=== PATIENT | male | born 1980 | race Caucasian/White ===

== ENCOUNTER 2020-03-18 02:09 | Emergency (ER) | payer BC ==
[2020-03-18] MEDS ORDERED: Amoxicillin/Clavulanate K 875-125 MG Tab PO STA (02:54)
--- NOTE | 2020-03-18 03:01 | EDM.PDOC ---
ED HPI GENERAL MEDICAL PROBLEM - General Chief Complaint: Skin Complaint Stated Complaint: BOIL THAT NEEDS TO BE LANCED Time Seen by Provider: 03/18/20 02:26 Source of Information: Reports: Patient History Limitations: Reports: No Limitations - History of Present Illness INITIAL COMMENTS - FREE TEXT/NARRATIVE: Mr. Cho is a very pleasant 39-year-old gentleman who now presents to the ED stating that he developed a boil on his right buttock on , 03/15/2020. He states that at first it was just a lump, but by 03/17/2020, it had become much larger and was painful and tender. The patient does not recall any injury that might have caused the lump. The patient states that he has had similar lesions twice in the past. The first time, he was seen at an emergency room and was told to just let it pop on its own, which it did. The second time, he went to a walk-in clinic, where it was lanced. The patient has not taken any [id number] or applied any home remedies to try to treat his symptoms. Here in the ED, the patient's initial BP is found to be mildly elevated at 153/100, otherwise, he is hemodynamically stable, afebrile, saturating 100% on room air. Other than the painful lump on his right buttock, the patient denies recent fever, chills, sore throat, ear pain, nasal or sinus congestion, cough, dyspnea, chest pain, palpitations, nausea, vomiting, constipation, diarrhea, abdominal pain, urinary symptoms, recent weight gain or weight loss, recent bloody bowel movements or black bowel movements, recent joint aches, headaches, or rashes. The patient does not have a PCP. Buttock Pain Score (Numeric/FACES): 8 - Related Data Allergies Allergy/AdvReac Type Severity Reaction Status Date / Time cefaclor [From Ceclor] Allergy Severe Fever Verified 03/18/20 02:27 erythromycin base Allergy Severe Hives Verified 03/18/20 02:28 [From Pediazole] sulfisoxazole Allergy Severe Hives Verified 03/18/20 02:28 [From Pediazole] Home Meds: Home Meds Amoxicillin/Potassium Clav [Augmentin 875-125 Tablet] 1 tab PO Q12H #20 tablet 03/18/20 [Rx] Fluticasone Furoate [Flonase Sensimist] 1 spray NASBOTH DAILY 03/18/20 [History] Past Medical History HEENT History: Reports: Allergic Rhinitis Genitourinary History: Reports: Renal Calculus - Past Surgical History HEENT Surgical History: Reports: Adenoidectomy, Oral Surgery (wisdom teeth extraction), Tonsillectomy GI Surgical History: Reports: Hernia, Inguinal (bilateral) Male Surgical History: Reports: Lithotripsy ([facility]) Social & Family History - Tobacco Use Smoking Status *Q: Never Smoker Tobacco Use Within Last Twelve Months: Smokeless Tobacco (Chewed 1 can/wk x 15 yrs, quit 2013) - Caffeine Use Caffeine Use: Reports: None - Alcohol Use Alcohol Use History: Yes Alcohol Use Frequency: Socially - Recreational Drug Use Recreational Drug Use: No - Living Situation & Occupation Living situation: Reports: Single, with Significant Other (Girlfrined), with Family (1 infant son) 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 ED EXAM, SKIN/RASH Exam: See Below Exam Limited By: No Limitations General Appearance: Alert, WD/WN, No Apparent Distress Rectal (Males) Exam: Perirectal Abscess (large, right) Course - Vital Signs Last Recorded V/S: Last Vital Signs Temp 36.6 C 03/18/20 02:17 Pulse 99 03/18/20 02:17 Resp 20 03/18/20 02:17 BP 153/100 H 03/18/20 02:17 Pulse Ox 100 03/18/20 02:17 - Orders/Labs/Meds Orders: Active Orders 24 hr Category Date Time Status Amoxicillin/Clavulanate K [Augmentin 875 MG/125 MG] Med 03/18/20 02:54 Stat 1 tab PO ONETIME STA - Re-Assessments/Exams Free Text/Narrative Re-Assessment/Exam: 03/18/20 02:55 As above, the "boil" that the patient has on his right buttock is in fact a large right perirectal abscess. It would be improper for me to attempt to drain it here in the ED. The patient should have proper surgical drainage and exploration. I offered to call our surgeon, however, the patient stated that he will be going back home to [place] after he leaves here, therefore I will refer him to Dr. Horne at [facility]. In the meantime, in order to prevent spread of the infection, I will start him on oral Augmentin, and prescribe a 10- day course. Departure - Departure Time of Disposition: 02:56 Disposition: Home, Self-Care 01 Condition: Good Clinical Impression: Perirectal abscess - Discharge Information *PRESCRIPTION DRUG MONITORING PROGRAM REVIEWED*: Not Applicable *COPY OF PRESCRIPTION DRUG MONITORING REPORT IN PATIENT FLORIN: Not Applicable Prescriptions: Amoxicillin/Potassium Clav [Augmentin 875-125 Tablet] 1 tab PO Q12H #20 tablet Referrals: Rui Horne MD [Ordering Only Provider] - Additional Instructions: You were seen in the emergency room for a "boil" on your right buttock. On examination, you have a large right perirectal abscess. As discussed, it would be inappropriate for this to be drained in the ER; it requires proper surgical drainage and exploration. You have been started on antibiotic Augmentin. This will not cure the abscess, but will help to prevent the infection from spreading any further. Take 1 tablet of Augmentin every 12 hours, starting this afternoon, 03/18/2020, as prescribed. Follow-up with the Colorectal Surgeon Dr. Rui Horne, at [facility], at the next available appointment. Make sure that the insurance claims processor understands that you are following up from the emergency room, and that we recommend that you be evaluated soon. If any other problems, please do not hesitate to return to the ER. Sepsis Event Note (ED) - Evaluation Sepsis Screening Result: No Definite Risk - Focused Exam Vital Signs: Vital Signs Temp Pulse Resp BP Pulse Ox 03/18/20 02:17 36.6 C 99 20 153/100 H 100 - My Orders Last 24 Hours: My Active Orders 03/18/20 02:54 Amoxicillin/Clavulanate K [Augmentin 875 MG/125 MG] 1 tab PO ONETIME STA - Assessment/Plan Last 24 Hours: My Active Orders 03/18/20 02:54 Amoxicillin/Clavulanate K [Augmentin 875 MG/125 MG] 1 tab PO ONETIME STA
== END 2020-03-18 03:05 | disposition home or self-care (01) ==
LOC: JD.ED 02:09
DX: K61.1 Rectal abscess (principal); Z88.1 Allergy status to other antibiotic agents; Z88.2 Allergy status to sulfonamides; Z98.890 Other specified postprocedural states; Z87.891 Personal history of nicotine dependence
CPT/HCPCS: 99283; A9270